=== PATIENT | female | born 1955 | race Hispanic/Latino ===

== ENCOUNTER 2018-01-07 08:04 | Inpatient (IN) | payer OTHER ==
[2018-01-07 08:18] VITALS: TEMP 98.5
[2018-01-07] MEDS ORDERED: Morphine 4 mg/ml ISec IVP STA ×2 (08:24→12:57)
[2018-01-07 08:44] LABS: BASO # 0.02 K/mm3 (0.0-2.0); BASO % 0.2 % (0.0-3.0); EOS # 0.1 (0.0-0.7); EOS % 0.7 % (1.5-5.0); GRAN # 7.46 (1.4-6.5); GRAN % 73.6 % (50.0-68.0); HEMOGLOBIN 13.7 g/dL (12.0-16.0); LYMPH # 1.5 (1.2-3.4); LYMPH % 14.5 % (22.0-35.0); MEAN CELL VOLUME 88.8 fl (80.0-105.0); MEAN CORPUSCULAR HGB CONC 33.8 g/dl (31.0-37.0); MEAN PLATELET VOLUME 8.7 fl (7.0-11.0); MONO # 1.1 (0.1-0.6); RBC 4.56 10^6/uL (3.5-6.1); RED CELL DISTRIBUTION WIDTH 13.1 % (11.5-14.5); WHITE BLOOD COUNT 10.1 10^3/ul (4.5-11.0)
--- NOTE | 2018-01-07 08:48 | ED PDOC ---
Arrival/HPI - General Chief Complaint: Trauma Time Seen by Provider: 01/07/18 08:12 Historian: Patient - History of Present Illness Narrative History of Present Illness (Text): 01/07/18 08:38 62 year old female, with no significant past medical history, was brought in by EMS from a cruise ship for left hip discomfort s/p fall on Wednesday. Patient informs roller skating when she fell on her right side injuring her left hip ad upper left leg. Patient rates her pain as 8/10 and requests medication for her pain. Patient denies any other injuries. Patient denies any fever, chills, nausea, vomiting, abdominal pain, chest pain, shortness of breath or any other complaints. Time/Duration: 24 hours Symptom Onset: Sudden Symptom Course: Unchanged Quality: Aching Context: Other (cruise ship) Past Medical History - Provider Review Nursing Documentation Reviewed: Yes - Infectious Disease Hx of Infectious Diseases: None - Psychiatric Hx Substance Use: No Family/Social History - Physician Review Nursing Documentation Reviewed: Yes Family/Social History: No Known Family HX Smoking Status: Never Smoked Hx Alcohol Use: No Hx Substance Use: No Allergies/Home Meds Allergies/Adverse Reactions: Allergies No Known Allergies Allergy (Verified 01/07/18 08:18) Home Medications: Home Meds Medication Instructions Recorded Confirmed No Known Home Med 01/07/18 01/07/18 Review of Systems - Physician Review All systems were reviewed & negative as marked: Yes - Review of Systems Constitutional: Normal. absent: Fevers Eyes: Normal ENT: Normal Respiratory: Normal. absent: SOB Cardiovascular: Normal. absent: Chest Pain Gastrointestinal: Normal. absent: Abdominal Pain, Diarrhea, Nausea, Vomiting Genitourinary Female: Normal Musculoskeletal: Other (left hip+upper left leg discomfort) Skin: Normal Neurological: Normal Endocrine: Normal Hemo/Lymphatic: Normal Psychiatric: Normal Physical Exam Vital Signs Reviewed: Yes Vital Signs Temp Pulse Resp BP Pulse Ox 01/07/18 13:00 81 18 135/74 97 01/07/18 11:31 89 18 138/86 97 01/07/18 08:14 98.5 F 90 17 143/92 H 96 Temperature: Afebrile Blood Pressure: Hypertensive Pulse: Regular Respiratory Rate: Normal Appearance: Positive for: Well-Appearing, Non-Toxic, Comfortable Pain Distress: None Mental Status: Positive for: Alert and Oriented X 3 - Systems Exam Head: Present: Atraumatic, Normocephalic Pupils: Present: PERRL Extroacular Muscles: Present: EOMI Conjunctiva: Present: Normal Mouth: Present: Moist Mucous Membranes Neck: Present: Normal Range of Motion Respiratory/Chest: Present: Clear to Auscultation, Good Air Exchange. No: Respiratory Distress, Accessory Muscle Use Cardiovascular: Present: Regular Rate and Rhythm, Normal S1, S2. No: Murmurs Abdomen: Present: Normal Bowel Sounds. No: Tenderness, Distention, Peritoneal Signs Back: Present: Normal Inspection Upper Extremity: Present: Normal Inspection. No: Cyanosis, Edema Lower Extremity: Present: Tenderness (left hip tenderness). No: Edema Neurological: Present: GCS=15, CN II-XII Intact, Speech Normal Skin: Present: Warm, Dry, Normal Color. No: Rashes Psychiatric: Present: Alert, Oriented x 3, Normal Insight, Normal Concentration Medical Decision Making ED Course and Treatment: 01/07/18 08:53 Impression: 62 year old female presents to the Emergency department for left hip discomfort s/p fall. Plan: -- VBG -- EKG -- Labs -- Chest X-ray -- Morphine -- X-ray of left hip/pelvis -- Reassess and disposition Progress Notes: 01/07/18 10:00 EKG: Ordered, reviewed, and independently interpreted the EKG. Rate : 85 BPM Rhythm : NSR Interpretation : No ST-segment elevations or depressions, no T-wave inversions, normal intervals. 01/07/18 11:30 Extremity Ultrasound reviewed by radiologist, shows no sonographic evidence for deep venous thrombosis in the visualized segments of both lower extremities. 01/07/18 12:00 X-ray of left hip/pelvis reviewed by radiologist, shows suspicious for acute left femoral neck fracture. - Lab Interpretations Lab Results: 01/07/18 08:30 01/07/18 08:30 Lab Results 01/07/18 08:45: Blood Type O POSITIVE, Antibody Screen Negative, BBK History Checked No verified bt 01/07/18 08:30: Sodium 140, Potassium 4.2, Chloride 101, Carbon Dioxide 26, Anion Gap 17, BUN 9, Creatinine 0.6 L, Est GFR ( Amer) > 60, Est GFR (Non -Af Amer) > 60, Random Glucose 111 H, Calcium 9.7, Total Bilirubin 0.5, AST 33, ALT 31, Alkaline Phosphatase 77, Total Protein 7.7, Albumin 4.0, Globulin 3.7, Albumin/Globulin Ratio 1.1 01/07/18 08:30: PT 14.2 H, INR 1.23 H, APTT 31.5 01/07/18 08:30: WBC 10.1, RBC 4.56, Hgb 13.7, Hct 40.5, MCV 88.8, MCH 30.0, MCHC 33.8, RDW 13.1, Plt Count 466 H, MPV 8.7, Gran % 73.6 H, Lymph % (Auto) 14.5 L, Calloway % (Auto) 11.0 H, Eos % (Auto) 0.7 L, Baso % (Auto) 0.2, Gran # 7.46 H, Lymph # (Auto) 1.5, Calloway # (Auto) 1.1 H, Eos # (Auto) 0.1, Baso # (Auto ) 0.02 - RAD Interpretation Radiology Orders: 01/07/18 08:23 CHEST ONE VIEW [RAD] Stat 01/07/18 08:24 HIP MIN 2V W/ PELVIS LT [RAD] Stat - Medication Orders Current Medication Orders: Heparin Sodium (Porcine) (Heparin) 5,000 units SC Q8H [facility] PRN Reason: Protocol Last Admin: 01/07/18 13:06 Dose: 5,000 units Subcutaneous Administrations Document 01/07/18 13:06 [facility] [place]Rec: 01/07/18 13:06 [facility] [id number]) Injection Site MAR Injection Site Right Abdomen Charges for Administration # of Subcutaneous Administrations 1 Sodium Chloride (Sodium Chloride 0.45%) 1,000 mls @ 60 mls/hr IV .[id number] [facility] Last Admin: 01/07/18 09:59 Dose: 60 mls/hr eMAR Start Stop Document 01/07/18 09:59 [facility] (Rec: 01/07/18 09:59 [facility] [id number]) Intravenous Solution Start Date 01/07/18 Start Time 09:59 Discontinued Medications Morphine Sulfate (Morphine) 4 mg IVP STAT STA Stop: 01/07/18 08:25 Last Admin: 01/07/18 08:37 Dose: 4 mg MAR Pain Assessment Document 01/07/18 08:37 [facility] (Rec: 01/07/18 08:37 [facility] [id number]) Pain Reassessment Is this a pain reassessment? No Sleep Is patient sleeping during reassessment? No Presence of Pain Presence of Pain Yes Pain Scale Used Pain Scale Used Numeric Location Left, Right or Bilateral Left Pain Location Body Site Leg IVP Administration Document 01/07/18 08:37 [facility] (Rec: 01/07/18 08:37 [facility] [id number]) Charges for Administration # of IVP Administrations 1 Morphine Sulfate (Morphine) 4 mg IVP STAT STA Stop: 01/07/18 12:58 Last Admin: 01/07/18 13:06 Dose: 4 mg [facility] Pain Assessment Document 01/07/18 13:06 [facility] (Rec: 01/07/18 13:07 [facility] [id number]) Pain Reassessment Is this a pain reassessment? No Sleep Is patient sleeping during reassessment? No Presence of Pain Presence of Pain Yes Pain Scale Used Pain Scale Used Numeric Location Left, Right or Bilateral Left Pain Location Body Site Leg Description Description Constant Intensity of Pain at present 8 IVP Administration Document 01/07/18 13:06 [facility] (Rec: 01/07/18 13:07 [facility] [id number]) Charges for Administration # of IVP Administrations 1 - Scribe Statement The provider has reviewed the documentation as recorded by the Scribe Paty Drake. All medical record entries made by the Scribe were at my direction and personally dictated by me. I have reviewed the chart and agree that the record accurately reflects my personal performance of the history, physical exam, medical decision making, and the department course for this patient. I have also personally directed, reviewed, and agree with the discharge instructions and disposition. Disposition/Present on Arrival - Present on Arrival Any Indicators Present on Arrival: No History of DVT/PE: No History of Uncontrolled Diabetes: No Urinary Catheter: No History of Decub. Ulcer: No History Surgical Site Infection Following: None - Disposition Have Diagnosis and Disposition been Completed?: Yes Diagnosis: Hip fracture Disposition: HOSPITALIZED Disposition Time: 01:00 Condition: STABLE
[2018-01-07 09:02] LABS: PROTHROMBIN TIME 14.2 SECONDS (9.4-12.5)
[2018-01-07 09:03] LABS: INR 1.23 (0.93-1.08); PARTIAL THROMBOPLASTIN TIME 31.5 Seconds (25.1-36.5)
[2018-01-07 09:08] LABS: ALB/GLOB RATIO 1.1 (1.1-1.8); ALT/SGPT 31 U/L (7-56); AST/SGOT 33 U/L (14-36); BLOOD UREA NITROGEN 9 mg/dL (7-21); CALCIUM 9.7 mg/dL (8.4-10.5); GFR AFRICAN-AMERICAN > 60; GFR NON-AFRICAN AMERICAN > 60
[2018-01-07] MEDS: Sodium Chloride 0.45% 1,000 ML IV SCH (09:59)
--- NOTE | 2018-01-07 11:41 | RAD ---
PROCEDURE: Left Hip X-ray Radiographs. HISTORY: fall COMPARISON: None. FINDINGS: BONES: Suspicious for a displaced left femoral neck/subcapital fracture. JOINTS: Normal. SOFT TISSUES: Normal. OTHER FINDINGS: None. IMPRESSION: Suspicious for acute left femoral neck fracture.
--- NOTE | 2018-01-07 11:43 | US ---
HISTORY: Leg pain and swelling. Evaluate for DVT PHYSICIAN(S): Zenon Shah MD. TECHNIQUE: Duplex sonography and color-flow Doppler with graded compression were used to evaluate the deep venous systems of both lower extremities. FINDINGS: The visualized deep venous systems of both lower extremities are sonographically normal and compressible. Normal wave forms and augmentation are seen. There is no sonographic evidence for deep venous thrombosis in the visualized segments of both lower extremities. IMPRESSION: No sonographic evidence for deep venous thrombosis in the visualized segments of both lower extremities.
--- NOTE | 2018-01-07 14:19 | RAD ---
PROCEDURE: CHEST RADIOGRAPH, 1 VIEW HISTORY: preop COMPARISON: None available. FINDINGS: LUNGS: Clear. PLEURA: No pneumothorax or pleural fluid seen. CARDIOVASCULAR: Normal. OSSEOUS STRUCTURES: Mild degenerative changes. VISUALIZED UPPER ABDOMEN: Normal. OTHER FINDINGS: None. IMPRESSION: No active disease.
[2018-01-07] MEDS ORDERED: Morphine 4 mg/ml ISec IVP PRN (15:08)
[2018-01-07 15:49] VITALS: BMI 25.0
[2018-01-07] MEDS ORDERED: Pneumococcal 23-Valent Vaccine IM ONE (15:50)
[2018-01-07] MEDS ORDERED: Influenza Vaccine 60 mcg/0.5 mL SYR (4YR UP) IM ONE (15:50)
--- NOTE | 2018-01-07 17:54 | CARD ---
APPROVED REPORT EXAM: Two-dimensional and M-mode echocardiogram with Doppler and color Doppler. INDICATION Pre-Op 2D DIMENSIONS Left Atrium (2D)3.4 (1.6-4.0cm)IVSd1.1 (0.7-1.1cm) LVDd4.0 (3.9-5.9cm)PWd1.0 (0.7-1.1cm) LVDs2.8 (2.5-4.0cm)FS (%) 30.3 % LVEF (%)58.3 (>50%) M-Mode DIMENSIONS Aortic Root2.60 (2.2-3.7cm)Aortic Cusp Exc.2.10 (1.5-2.0cm) Aortic Valve AoV Peak Xaazhyso012.0cm/Dung Peak GR.7mmHg Mitral Valve MV E Bmhlonmt43.1cm/sMV A Fixcegsw063.0cm/sE/A ratio0.6 TDI E/Lateral E'0.0E/Medial E'0.0 Tricuspid Valve TR Peak Ktsuidzj552rt/sRAP [id number] Peak Gr.22mmHg [id number] LEFT VENTRICLE The left ventricle is normal size. There is normal left ventricular wall thickness. The left ventricular function is normal. The left ventricular ejection fraction is within the normal range. There is normal LV segmental wall motion. Transmitral Doppler flow pattern is Grade I-abnormal relaxation pattern. RIGHT VENTRICLE The right ventricle is normal size. There is normal right ventricular wall thickness. The right ventricular systolic function is normal. ATRIA The left atrium size is normal. The right atrium size is normal. AORTIC VALVE The aortic valve is not well visualized. There is trace aortic regurgitation. MITRAL VALVE The mitral valve is normal in structure. There is no mitral valve regurgitation noted. TRICUSPID VALVE The tricuspid valve is normal in structure. There is trace tricuspid regurgitation. GREAT VESSELS The aortic root is normal in size. PERICARDIAL EFFUSION There is a trace loculated anterior pericardial effusion. <Conclusion> The left ventricle is normal size. There is normal left ventricular wall thickness. The left ventricular function is normal. The left ventricular ejection fraction is within the normal range. There is normal LV segmental wall motion. Transmitral Doppler flow pattern is Grade I-abnormal relaxation pattern.
--- NOTE | 2018-01-07 19:33 | PN ---
DATE: SUBJECTIVE: I was asked to evaluate Ms. Janet Vela preoperatively for surgery for a fracture; however, after I took history from the patient, she conveyed to me her concerns about my consultation and the fact that she does not want to be bothered with medical bills from this hospital at all and she prefers to be transferred to [place] in [place] where she gets treated for her fracture. I had to abide by the patient's request and not to proceed with any further evaluation and the patient was grateful for my compliance with her request. If any change in the patient's decision toward my evaluation, please let me know. Alexis Mcclain MD
--- NOTE | 2018-01-07 20:29 | CON ---
DATE: 01/07/2018 ORTHOPEDIC REPORT HISTORY OF PRESENT ILLNESS: The patient is a 62-year-old female who suffered a displaced subcapital fracture of the left hip while was skating on a cruise ship on 01/05/2018. She was x-rayed on the cruise ship, found that she had a left hip fracture a displaced sub capital fx,, and kept in [place] today on 01/07/2018. She was brought to the ER, confirmed that she has a left hip fracture, displaced subcapital, will require total hip replacement and it is imperative that the patient gets to her home in [place], [place], for the definite surgery of the left total hip replacement and being that it would be too cumbersome and risky to have a total hip done here and then send over there by ambulance for rehabilitation. So, the hard canonical thing to do is send her by ambulance now where she would not have any un due trauma to the new total hip or wound that could get infected and go to [place], [place], today to go to the [facility] and the accepting doctor would be Dr. Platt and get the surgery in her home hospital where her , who has terminal cancer, would be able to be with her most of the time. In this hospital, we did a chest x-ray and a venous Doppler to make sure she has low chance of a blood clot in her lower extremities that could go into her lung, so we will transfer her today to [facility] under the care of Dr. Platt of the [facility] and that was confirmed by Dr. Platt's physician assistant tennis coach, which was Talha and there is Charleen also, but they are going to accept her when she gets to the [facility] where the family requested her to go as opposed to having procedure here and the slightest of the complication could be catastrophic since she is not at her home and her is terminally ill, so I made the decision to send her to [facility] under the care of Dr. Platt and have the surgery there and a prolonged rehabilitation done there. FINAL DIAGNOSIS: Displaced subcapital fracture needing a total hip replacement when medically cleared in [place], [place]. Gareth Escudero DO MTDThomas
[2018-01-07] MEDS: Morphine 4 mg/ml ISec IVP PRN (20:36)
--- NOTE | 2018-01-07 22:19 | HP ---
HISTORY OF PRESENT ILLNESS: I saw Mone in the emergency room. She is from the cruise ship. She had gone roller-skating and then fell on her side in the left hip and began to have 8/10 pain. She has been lying in the ship for 2-3 days now, very uncomfortable. She is now here in the emergency room. PAST MEDICAL HISTORY: She denies any past medical history. PAST SURGICAL HISTORY: She denies any past surgical history. SOCIAL HISTORY: Not smoking. No drinking. No drugs. MEDICATIONS: She does not take any medications, prescription ramirez. ALLERGIES: NO KNOWN DRUG ALLERGIES. FAMILY HISTORY: None. REVIEW OF SYSTEM: No vision issues. No hearing issues. No sore throat. No shortness of breath or cough. No chest pain or palpitations. No abdominal pain, nausea, vomiting, constipation, diarrhea. She goes to the bathroom okay. Skin for the most part is intact. No rashes or ulcers. She has a left hip pain, upper leg pain from the fall. No dizziness. No loss of consciousness. No anxiety or depression. PHYSICAL EXAMINATION: GENERAL: Alert and oriented x3. VITAL SIGNS: She has a 98.5 temperature, 90 pulse, 17 respiratory rate, 143/92, which is in pain. We will recheck the blood pressure as she never had a blood pressure before. Pulse is 96. HEENT: Head is atraumatic, normocephalic. Throat is moist. Extraocular muscles intact. Pupils are equal and reactive to light and accommodation. NECK: Supple. HEART: Regular rate. Normal S1, S2. LUNGS: Decreased breath sounds, clear to auscultation. ABDOMEN: Soft, nontender. Positive bowel sounds. No guarding. No rebound. The left leg is shorter and externally rotated. GCS is 15. NEURO: Cranial nerve is II-XII grossly intact. SKIN: Warm and dry. No apparent rashes or ulcers. LYMPHATICS: Thyroid midline. No palpable appreciable lymphadenopathy. LABORATORY DATA: She had multiple tests that were done. She has a 140 sodium, potassium 4.2, BUN 9, creatinine 0.62, GFR is greater than 60, sugar is 111, calcium 9.7, total bili is 0.5, AST 33, ALT is 31, alk phos is 77, total protein 7.7, albumin is 4.0, INR is 1.23. She has a 10.1 white count, 13.7 hemoglobin, 40.5 hematocrit with 466 platelets. She has hip, pelvis x-ray, and chest x-rays. They are all pending. I looked at the chest x-ray and the hip x-ray and to me, there is a fracture of intertrochanteric fracture, it looks quite bad. The chest x-ray looks very good. She does have a consult with Cardiology for clearance. She had a 2-D echo pending. Cardiology pending. Hopefully, she will go to surgery this afternoon with the orthopedic doctor and get it fixed, otherwise we will start her on Lovenox. The patient with a fractured left hip and needs to have surgery. Thank you very much. Sudarshan Soto DO
--- NOTE | 2018-01-07 23:35 | CARD ---
APPROVED REPORT EKG Measurement Heart [id number] <Conclusion> Normal sinus rhythm Nonspecific ST and T wave abnormality Abnormal ECG
[2018-01-08] MEDS: Sodium Chloride 0.45% 1,000 ML IV SCH (05:11)
[2018-01-08] MEDS: Morphine 4 mg/ml ISec IVP PRN ×2 (05:55→09:47)
[2018-01-08 07:03] LABS: HEMOGLOBIN 13.6 g/dL (12.0-16.0); MEAN CORPUSCULAR HEMOGLOBIN 29.4 pg (25.0-35.0); MEAN PLATELET VOLUME 8.9 fl (7.0-11.0); RBC 4.63 10^6/uL (3.5-6.1); RED CELL DISTRIBUTION WIDTH 13.2 % (11.5-14.5); WHITE BLOOD COUNT 11.5 10^3/ul (4.5-11.0)
[2018-01-08 07:22] LABS: ALB/GLOB RATIO 1.1 (1.1-1.8); ALBUMIN 3.9 g/dL (3.0-4.8); ALT/SGPT 65 U/L (7-56); AST/SGOT 82 U/L (14-36); BLOOD UREA NITROGEN 12 mg/dL (7-21); CALCIUM 9.8 mg/dL (8.4-10.5); GFR AFRICAN-AMERICAN > 60; GFR NON-AFRICAN AMERICAN > 60
[2018-01-08 07:57] VITALS: BP 129/83; PULSE 86; RESP 20; O2SAT 95
--- NOTE | 2018-01-09 07:04 | DS ---
She was on cruise ship. She fell. She fractured her left hip. She has been lying in bed for a while now. The plan is to send her back today to where she is from by transportation, ambulance, so she is going to have surgery in the hospital where her and family are and the doctors that she knows. So, she is being discharged today by ambulance back to her town in [place]. She has displaced a subcapital fracture needing total hip replacement. She needed to go to [place], [place] and she is being discharged. This is on Janet Vela who fell on a cruise ship roller skating and fractured hip. Sudarshan Soto DO
== END 2018-01-08 12:46 | disposition short-term general hospital (02) | DRG 536 ==
LOC: ED 08:04 → ERH 10:26 → 5RNO 14:19
PROVIDERS: ADMIT Family Medicine; ATTEND Family Medicine
DX: S72.012A Unspecified intracapsular fracture of left femur, initial encounter for closed fracture (principal); V00.121A Fall from non-in-line roller-skates, initial encounter; Y93.51 Activity, roller skating (inline) and skateboarding; Y92.89 Other specified places as the place of occurrence of the external cause